=== PATIENT | female | born 1985 | race Hispanic/Latino ===

== ENCOUNTER 2019-10-04 12:18 | Emergency (ER) | payer OTHER, SELFPAY ==
[2019-10-04 12:46] VITALS: BP 145/80; PULSE 112; RESP 16; TEMP 36.6; O2SAT 99
--- NOTE | 2019-10-04 12:52 | ED.GENADULT ---
HPI - General Adult General Chief complaint: Ear Stated complaint: Stuffy Nose Time Seen by Provider: 10/04/19 12:52 Source: patient Mode of arrival: ambulatory Limitations: no limitations History of Present Illness HPI narrative: 34-year-old female patient presents to the [facility] with complaints of right ear pain that has been ongoing for the past 2 weeks but is gotten increasingly worse the last couple of days with mild dizziness. Patient states she is currently 14 weeks . Patient denies any fevers, body aches or chills. Patient states she has had a little bit of a stuffy nose that she has been using a [employer] pot for. Patient denies any sore throat, coughing, chest pain or shortness of breath. Related Data Home Medications Medication Instructions Recorded Confirmed PNV,calcium 66-xamc-bhylq acid 1 tablet PO DAILY 10/04/19 10/04/19 [ Vitamin Plus Low Iron] loratadine [Claritin] 10 mg PO DAILY 10/04/19 10/04/19 nifedipine 30 mg PO DAILY 10/04/19 10/04/19 Allergies Allergy/AdvReac Type Severity Reaction Status Date / Time No Known Allergies Allergy Verified 10/04/19 13:00 Review of Systems Review of Systems: Narrative: CONSTITUTIONAL: Denies fever, chills, or sweats. EYES: Denies visual changes, redness, or discharge. ENT: Denies rhinorrhea, congestion, sore throat, positive right otalgia. CARDIOVASCULAR: Denies chest pain, palpitations, or edema. RESPIRATORY: Denies cough or dyspnea. GASTROINTESTINAL: Denies abdominal pain, nausea, vomiting, or diarrhea. GENITOURINARY: Denies dysuria or hematuria. SKIN: Denies rash or itching. MUSCULOSKELETAL: Denies back pain, joint pain, or myalgia. NEUROLOGIC: Denies headache, numbness, or weakness. PSYCHIATRIC: Denies anxiety or depression. [facility] Family History Family History Other Diabetes mellitus Hypertension Social History Social History Smoking status: Current every day smoker Alcohol intake: current Comments At the time of my signature I agree with nursing past medical history, surgical, social, and family history. There is no relevant family history pertinent to the presenting complaint. Exam Narrative: Exam Narrative: GENERAL: Well-appearing, well-nourished, and in no acute distress. HEAD: Normocephalic, atraumatic. EYES: PERRLA and EOMI. ENT: Nares clear, no rhinorrhea or epistaxis. Mucous membranes moist. The right eardrum does have some erythema as well as some pus noted behind the TM. Nothing noted to the canal. Posterior pharynx with no erythema, tonsil management, exudates or lesions present. NECK: Supple. No lymphadenopathy CHEST: Clear to auscultation. No respiratory distress. HEART: Regular rate and rhythm. No murmur heard. Normal peripheral pulses. ABDOMEN: Soft, nontender, nondistended, normal active bowel sounds. EXTREMITIES: Normal range of motion. No edema. SKIN: Warm, dry, no rash. NEURO: No focal deficits. Alert and oriented x3. Course Vital Signs Vital signs: Vital Signs Temperature 36.6 C 10/04/19 12:46 Pulse Rate 112 H 10/04/19 12:46 Respiratory Rate 16 10/04/19 12:46 Blood Pressure 145/80 H 10/04/19 12:46 Pulse Oximetry 99 10/04/19 12:46 Temperature 36.6 C 10/04/19 12:46 Pulse Rate 112 H 10/04/19 12:46 Respiratory Rate 16 10/04/19 12:46 Blood Pressure 145/80 H 10/04/19 12:46 Pulse Oximetry 99 10/04/19 12:46 Vital signs reviewed. The patient has been informed that they may have pre-hypertension or Hypertension based on a BP reading in the department. I recommend that the patient call the primary care provider listed on their discharge instructions or a physician of their choice this week to arrange follow up for further evaluation of possible pre-hypertension or Hypertension Medical Decision Making Differential Diagnosis Differential Diagnosis: Differential
== END 2019-10-04 13:05 | disposition home or self-care (01) ==
PROVIDERS: Emergency Provider Nurse Practitioner Family; PCP Registered Nurse
DX: H66.91 Otitis media, unspecified, right ear (principal); F17.200 Nicotine dependence, unspecified, uncomplicated
CPT/HCPCS: 99213; G0463

== ENCOUNTER 2019-12-30 12:23 | Emergency (ER) | payer OTHER, SELFPAY ==
[2019-12-30 12:33] VITALS: BP 120/63; PULSE 118; RESP 18; TEMP 36.8; O2SAT 98
[2019-12-30 12:35] VITALS: BP 120/63; PULSE 118; RESP 18; TEMP 36.8; O2SAT 98
--- NOTE | 2019-12-30 12:44 | ED.DIZZY ---
HPI - Dizziness General Chief Complaint: Dizziness Stated Complaint: dizziness History of Present Illness HPI Narrative: THIS A 34 YEAR OLD FEMALE THAT COMES IN COMPLAINING OF DIZZINESS THAT HAS BEEN GOING ON FOR 2 WEEKS OFF AND ON. PATIENT STATES SHE BELIEVES IT VERTIGO BECAUSE SHE HAS HAD IT BEFORE PATIENT IS 26 WEEKS . PATIENT DENIES CALLING HER [employer] BUT STATES SHE GET EAR INFECTIONS OFTEN AND SHE HAS JUST STARTED TAKING ZYRTEC. PATIENT STATES SHE WAS TAKING CLARITIN AND IT WAS NOT WORKING. PATIENT STATES HER RIGHT EAR IS CAUSING SOME ISSUES AND SHE FEEL LIKE SHE HAS TO LEAN THAT WAY BECAUSE HER EAR FEELS FULL. Related Data Home Medications Medication Instructions Recorded Confirmed PNV,calcium 28-tato-rukkj acid 1 tablet PO DAILY 10/04/19 10/04/19 [ Vitamin Plus Low Iron] loratadine [Claritin] 10 mg PO DAILY 10/04/19 10/04/19 nifedipine 30 mg PO DAILY 10/04/19 10/04/19 aspirin 12/30/19 chlorthalidone 12/30/19 citalopram mg 12/30/19 Allergies Allergy/AdvReac Type Severity Reaction Status Date / Time No Known Allergies Allergy Verified 10/04/19 13:00 Review of Systems Review of Systems: Narrative: CONSTITUTIONAL: Denies fever, chills, or sweats. EYES: Denies visual changes, redness, or discharge. ENT: Denies rhinorrhea, congestion, REPORTS sore throat, or otalgia. CARDIOVASCULAR:Denies chest pain, palpitations, or edema. RESPIRATORY: Denies cough or dyspnea. GASTROINTESTINAL: Denies abdominal pain, nausea, vomiting, or diarrhea. GENITOURINARY: Denies dysuria or hematuria. SKIN:[Denies rash or itching. MUSCULOSKELETAL:Denies back pain, joint pain, or myalgia. NEUROLOGIC: Denies headache, numbness, or weakness. PSYCHIATRIC:Denies anxiety or depression [facility] Family History Family History Other Diabetes mellitus Hypertension Social History Social History Smoking status: Current every day smoker Alcohol intake: current Comments At time as signature, I have reviewed and agree with nursing past medical, social, surgical and family history. Please see nursing chart for further information. There is no relevant family history pertinent to the presenting complaint. Exam Narrative: Exam Narrative: GENERAL:Well-appearing, well-nourished, and in no acute distress. HEAD:Normocephalic, atraumatic. EYES: PERRLA and EOMI. ENT: Nares clear, no rhinorrhea or epistaxis. Mucous membranes moist. RIGHT EAR TM BULGING WITH CLOUDY FLUID NOTED, . Postnasal drainage noted right erythema throat mild enlarged tonsils NECK: Supple. CHEST: Clear to auscultation. No respiratory distress. HEART: Regular rate and rhythm. No murmur heard. Normal peripheral pulses. ABDOMEN: Soft, nontender, nondistended, normal active bowel sounds. EXTREMITIES: Normal range of motion. No edema. SKIN: Warm, dry, no rash. NEURO: No focal deficits. Alert and oriented x3. Course Vital Signs Vital signs: Vital Signs Temperature 98.2 F 12/30/19 12:33 Pulse Rate 118 H 12/30/19 12:33 Respiratory Rate 18 12/30/19 12:33 Blood Pressure 120/63 12/30/19 12:33 Pulse Oximetry 98 12/30/19 12:33 Temperature 98.2 F 12/30/19 12:35 Pulse Rate 118 H 12/30/19 12:35 Respiratory Rate 18 12/30/19 12:35 Blood Pressure 120/63 12/30/19 12:35 Pulse Oximetry 98 12/30/19 12:35 MDM - Dizziness MDM Narrative Medical decision making narrative: cALL PLACED TO DR. VASQUEZ OFFICE PATIENT [employer] SHE IS 26 WEEKS MESSAGE LEFT FOR THEM TO CALL HER BACK DUE TO I WAS UNABLE TO GET A HOLD OF A LIVE PERSON/ Discharge Plan Discharge Clinical Impression: Dizziness Allergic rhinitis Qualifiers: Allergic rhinitis trigger: unspecified Allergic rhinitis seasonality: unspecified Qualified Code(s): J30.9 - Allergic rhinitis, unspecified Patient Disposition: Home, Self-Care Condition: Stable
== END 2019-12-30 13:02 | disposition home or self-care (01) ==
PROVIDERS: Emergency Provider Nurse Practitioner Family; PCP Registered Nurse
DX: O99.891 Other specified diseases and conditions complicating pregnancy (principal); R42 Dizziness and giddiness; O99.512 Diseases of the respiratory system complicating pregnancy, second trimester; J30.9 Allergic rhinitis, unspecified; O99.332 Smoking (tobacco) complicating pregnancy, second trimester; Z3A.26 26 weeks gestation of pregnancy
CPT/HCPCS: 99213; G0463

== ENCOUNTER 2020-02-16 09:03 | Outpatient (CLI) | payer OTHER, SELFPAY | END 2020-02-16 09:04 | disposition home or self-care (01) | LOC: ANHAUDIO 09:04 | PROVIDERS: PCP Registered Nurse | DX: H65.23 Chronic serous otitis media, bilateral (principal) | CPT/HCPCS: 92557; 92567 ==

== ENCOUNTER 2020-07-03 16:57 | Emergency (ER) | payer OTHER, SELFPAY ==
--- NOTE | ~2020-07-03 | XR_ITS ---
EXAMINATION: XR abdomen obstructive series DATE: 07/03/2020 17:43 INDICATION: Abdominal pain and diarrhea TECHNIQUE: Upright and supine views of the abdomen were obtained. COMPARISON: None. FINDINGS: There is no free intraperitoneal gas or evidence of bowel obstruction. Cholecystectomy clip s are noted. The lung bases are clear. IMPRESSION: 1. Nonobstructive bowel gas pattern. Reviewed, dictated and finalized at location A.
[2020-07-03 17:00] VITALS: BP 149/90; PULSE 76; RESP 16; TEMP 36.2; O2SAT 100
--- NOTE | 2020-07-03 17:16 | ED.GENADULT ---
HPI - General Adult General Chief complaint: Abdominal Pain Stated complaint: abd pain Source: patient Mode of arrival: ambulatory Limitations: no limitations History of Present Illness HPI narrative: Patient presents for evaluation of abdominal pain. Symptom onset approximately 2100 last night. States the pain occurred few hours after eating a salad. Pain was initially in LUQ, then to RUQ. Pain lasted until approximately 0300 this morning. She was unable to fall asleep. She describes the pain as cramping , rated 7 out of 10 in severity. She states she had some beef and vegetables soup today around 1400. Approximately an hour and a half ago she developed epigastric pain, similar in quality and severity to that experienced last evening. No fever, chills, vomiting. She experienced some mild nausea en route here today. She denies any urinary symptoms, vaginal bleeding/discharge. She underwent delivery 3 months ago. No postoperative complications. . She has not had a period since her recent delivery. Her last bowel movement was this morning, which she states was diarrhea, without the presence of blood or mucus in the stool. Surgical history also positive for cholecystectomy. She had similar symptoms to those she is experienced during last night and Related Data Home Medications Medication Instructions Recorded Confirmed PNV,calcium 93-lwcw-iogcl acid 1 tablet PO DAILY 10/04/19 07/03/20 [ Vitamin Plus Low Iron] loratadine [Claritin] 10 mg PO DAILY 10/04/19 07/03/20 Allergies Allergy/AdvReac Type Severity Reaction Status Date / Time No Known Allergies Allergy Verified 07/03/20 17:18 Review of Systems Review of Systems: Narrative: CONSTITUTIONAL: Denies fever, chills, or sweats. EYES: Denies visual changes, redness, or discharge. ENT: Denies rhinorrhea, congestion, sore throat, or otalgia. CARDIOVASCULAR: Denies chest pain, palpitations, or edema. RESPIRATORY: Denies cough or dyspnea. GASTROINTESTINAL: Reports abdominal pain and nausea without vomiting GENITOURINARY: Denies dysuria or hematuria. SKIN: Denies rash or itching. MUSCULOSKELETAL: Denies back pain, joint pain, or myalgia. NEUROLOGIC: Denies headache, numbness, dizziness, or weakness. PSYCHIATRIC: Denies anxiety or depression. [facility] Past Medical History Medical History (Updated 07/03/20 @ 18:43 by Bairon Hart, NET FINISHER, ) Hypertension Surgical History Surgical History History of section Family History Family History Other Diabetes mellitus Hypertension Social History Social History Smoking status: Current every day smoker Alcohol intake: current Substance use: never Living arrangements: with family Gender identity (if verbalized by the patient): Female Sexual Orientation (if Verbalized by the Patient): Straight or Heterosexual Spiritual care concerns: No Exam Narrative: Exam Narrative: GENERAL: Well-appearing, well-nourished, and in no acute distress. HEAD: Normocephalic, atraumatic. EYES: PERRLA and EOMI. ENT: Nares clear, no rhinorrhea or epistaxis. Mucous membranes moist. Oropharynx without tonsillar hypertrophy exudate or other lesions. Bilateral TMs pearly singleton nonbulging NECK: Supple. No adenopathy or masses. No carotid bruits or JVD CHEST: Clear to auscultation. No respiratory distress. No wheezes rales or rhonchi HEART: Regular rate and rhythm. No murmur heard. Normal peripheral pulses. ABDOMEN: Soft, mild epigastric tenderness without rebound or guarding. No other abdominal tenderness. Nondistended, normal active bowel sounds. EXTREMITIES: Normal range of motion. No edema. SKIN: Warm, dry, no rash. NEURO: No focal deficits. Alert and oriented x3. PSYCH: Normal mood and affect. Cour
== END 2020-07-03 18:55 | disposition home or self-care (01) ==
PROVIDERS: Emergency Provider Nurse Practitioner; PCP Registered Nurse
DX: R10.13 Epigastric pain (principal); I10 Essential (primary) hypertension; F17.200 Nicotine dependence, unspecified, uncomplicated
CPT/HCPCS: 74019; 81003; 81025; 99213; G0463

== ENCOUNTER 2022-06-12 11:38 | Emergency (ER) | payer OTHER, SELFPAY ==
[2022-06-12 11:45] VITALS: BP 145/85; PULSE 90; RESP 12; TEMP 36.8; O2SAT 100
--- NOTE | 2022-06-12 12:24 | ED.URI ---
HPI - URI/Sore Throat General Chief Complaint: Upper Respiratory Infection Stated Complaint: uri Time Seen by Provider: 06/12/22 12:24 Source: patient and RN notes reviewed Mode of arrival: ambulatory Limitations: no limitations History of Present Illness HPI Narrative: 36-year-old female presents with concern for chronic allergy problems and sinusitis. Reports symptoms worsen over the last 5 days, pain was worse yesterday. She reports she has been using antihistamine and Flonase without relief. She is . She denies fever, aches, chills, sweats, cough, shortness of breath. Denies known sick contacts MD elicited complaint: nasal congestion and sinus pain Related Data Home Medications Medication Instructions Recorded Confirmed loratadine 10 mg tablet (Claritin) 10 mg PO DAILY 10/04/19 06/12/22 vitamin with calcium 1 tablet PO DAILY 10/04/19 06/12/22 no.72-iron 27 mg-folic acid 1 mg tablet ( Vitamins Plus Low Iron) famotidine 40 mg tablet 40 mg PO DAILY 06/12/22 06/12/22 Allergies Allergy/AdvReac Type Severity Reaction Status Date / Time No Known Allergies Allergy Verified 06/12/22 11:41 Review of Systems Review of Systems: CONSTITUTIONAL: Denies malaise, chills, sweats, or fever. EYES: Denies visual changes, redness, or discharge. ENT: Reports rhinorrhea, congestion, sinus pain. Denies otalgia and sore throat. CARDIOVASCULAR: Denies chest pain, palpitations, or edema. RESPIRATORY: Denies cough. Denies dyspnea. GASTROINTESTINAL: Denies abdominal pain, nausea, vomiting, diarrhea SKIN: Denies rash or itching. MUSCULOSKELETAL: Denies myalgia. NEUROLOGIC: Denies headache. All systems reviewed & are unremarkable except as noted in HPI and below PMFSH Past Medical History Medical History (Updated 06/12/22 @ 12:33 by Nayla Norris NP) Hypertension Surgical History Surgical History History of section Family History Family History Other Diabetes mellitus Hypertension Social History Social History Smoking status: Current every day smoker Alcohol intake: current Substance use: never Living arrangements: with family Gender identity (if verbalized by the patient): Female Sexual Orientation (if Verbalized by the Patient): Straight or Heterosexual Spiritual care concerns: No Comments At time of signature, agree with nursing past medical, surgical, social and family history. There is no relevant family history pertinent to the presenting complaint Exam Narrative: GENERAL: Well-appearing, well-nourished, and in no acute distress. HEAD: Normocephalic EYES: PERRLA, conjunctivae clear ENT: Nares clear, turbinates edematous and erythematous, sinus tenderness. Mucous membranes moist. TM pearly singleton with dull light reflex bilaterally; no tragal tenderness. Oropharynx not erythematous without lesions. Tonsils not enlarged and without exudate, no drooling, no hoarseness, no trismus, uvula midline. NECK: Supple. No lymphadenopathy CHEST: Clear to auscultation, breath sounds equal. No wheezing, rhonchi, rales, or stridor. No respiratory distress, speaks in full sentences. HEART: Regular rate and rhythm. No murmur heard. SKIN: Warm, dry, no rash. NEURO: Alert and oriented x3. PSYCH: Normal mood and affect Course Course Emergency Course: Patient is aware of diagnosis, understands and agrees to treatment plan. Anticipatory guidance given. Patient agrees to follow-up as directed and is aware of reasons to seek care at the emergency department. Portions of this record may have been created with voice recognition software Level of Care: Express Care Visit Vital Signs Vital signs: Reviewed. MDM - URI/Sore Throat MDM Narrative Medical decision making narrative:
== END 2022-06-12 12:36 | disposition home or self-care (01) ==
PROVIDERS: Emergency Provider Nurse Practitioner; PCP Registered Nurse
DX: J01.90 Acute sinusitis, unspecified (principal); I10 Essential (primary) hypertension; F17.200 Nicotine dependence, unspecified, uncomplicated
CPT/HCPCS: 99213; G0463

== ENCOUNTER 2023-03-24 10:38 | Emergency (ER) | payer OTHER, SELFPAY ==
[2023-03-24 11:44] VITALS: BP 150/81; PULSE 114; RESP 16; TEMP 37.1; O2SAT 99
--- NOTE | 2023-03-24 12:06 | ED.URI ---
HPI - URI/Sore Throat General Chief Complaint: Upper Respiratory Infection Stated Complaint: throat itchy,right ear pain,congested Time Seen by Provider: 03/24/23 12:06 Source: patient, RN notes reviewed and old records reviewed Mode of arrival: ambulatory Limitations: no limitations History of Present Illness HPI Narrative: 37-year-old female presents to the [facility] with complaints of right ear pain, congestion and sore throat. Patient reports she is 6 months States that she has been taking Tylenol Sinus Patient has a history in previous pregnancies with hypertensive issues but currently not being treated Treatments prior to arrival: cold medicine Related Data Home Medications Medication Instructions Recorded Confirmed aspirin 81 mg chewable tablet 81 mg PO DAILY 03/24/23 03/24/23 cholecalciferol (vitamin D3) 125 125 mcg PO DAILY 03/24/23 03/24/23 mcg (5,000 unit) capsule (Dialyvite Vitamin D) vitamin with calcium 1 tablet PO DAILY 03/24/23 03/24/23 no.72-iron 27 mg-folic acid 1 mg tablet (WesTab Plus) Allergies Allergy/AdvReac Type Severity Reaction Status Date / Time No Known Allergies Allergy Verified 03/24/23 11:26 Review of Systems Review of Systems: All systems reviewed & are unremarkable except as noted in HPI and below Constitutional: Constitutional: Reports no additional constitutional complaints Eyes: Eyes: Reports no additional eye complaints ENT: Reports as per HPI, Reports nasal congestion and Reports sore throat Cardiovascular: Cardiovascular: Reports no additional cardiovascular complaints, Denies chest pain and Denies dyspnea Respiratory: Respiratory: Reports no additional respiratory complaints, Denies chest congestion, Denies cough and Denies dyspnea Gastrointestinal: Gastrointestinal: Reports no additional gastrointestinal complaints, Denies abdominal pain, Denies nausea and Denies vomiting Musculoskeletal: Musculoskeletal: Reports no additional musculoskeletal complaints Integumentary/Breasts: Skin/Breast: Reports system reviewed and no additional complaints, except as docu Neurologic: Reports system reviewed and no additional complaints, except as documented Psychiatric: Psychiatric: Reports no additional psychiatric complaints Allergic/Immunologic: Allergic/Immunologic: Reports no additional allergic/immunologic complaints [facility] Past Medical History Medical History Hypertension Surgical History Surgical History History of section Family History Family History Other Diabetes mellitus Hypertension Social History Social History Smoking status: Current every day smoker Alcohol intake: current Substance use: never Living arrangements: with family Gender identity (if verbalized by the patient): Female Sexual Orientation (if Verbalized by the Patient): Straight or Heterosexual Spiritual care concerns: No Comments At the time of my signature, I reviewed and agree with the nursing past medical, surgical, social, and family history. There is no relevant family history pertinent to the patient complaint. Exam Const: General: cooperative, healthy appearing, comfortable, no acute distress, well developed, alert and well nourished Nutritional Appearance: well nourished Orientation/consciousness: patient oriented x3 Limitations: no limitations HENMT: Head: normal to inspection Ears: hearing grossly normal bilaterally, external ears normal, TM's normal bilaterally, EAC's normal, mastoids normal and no periauricular adenopathy Face/Nose/Sinus: Normal external nose present, Normal nares present, Normal nasal mucous membranes and turbinates present, normal facial exam and face symmetric Face and sinus: normal
[2023-03-24 12:35] VITALS: BP 130/96
== END 2023-03-24 12:35 | disposition short-term general hospital (02) ==
PROVIDERS: Emergency Provider Nurse Practitioner; PCP Registered Nurse
DX: O26.892 Other specified pregnancy related conditions, second trimester (principal); J06.9 Acute upper respiratory infection, unspecified; R03.0 Elevated blood-pressure reading, without diagnosis of hypertension; O99.332 Smoking (tobacco) complicating pregnancy, second trimester; F17.200 Nicotine dependence, unspecified, uncomplicated; Z79.82 Long term (current) use of aspirin; Z3A.00 Weeks of gestation of pregnancy not specified
CPT/HCPCS: 87081; 87880; 99213; G0463

== ENCOUNTER 2023-10-12 | Emergency (ER) | payer OTHER, SELFPAY ==
[2023-10-12 00:20] VITALS: BP 136/84; PULSE 121; RESP 15; TEMP 36.2; O2SAT 100
[2023-10-12 01:23] LABS: Add Urine Microscopic? YES; Appearance Urine Clear (Clear); Bacteria Urine None Seen /hpf; Bilirubin Urine Negative (Negative); Blood Urine Negative (Negative); Color Urine Yellow (Yellow); Glucose Urine UA Negative (Negative); Ketones Urine Negative (Negative); Leukocyte Esterase Ur Trace LEU/UL (Negative); Nitrate Urine Negative (Negative); Non Pathogenic Casts 0-2; Protein Urine Negative (Negative); RBC Urine 0-2 /hpf (0-2); Specific Grav Ur 1.004 (1.001-1.035); Squamous Epithelial Cell Urine None Seen /hpf (Few); Urobilinogen Urine 0.2 mg/dL (<2.0); WBC Urine 0-5 /hpf (0-3); pH Urine 7.5 (5.0-9.0)
[2023-10-12 05:52] VITALS: BP 148/61; PULSE 99; RESP 16; O2SAT 97
[2023-10-12 05:56] LABS: Basophils Percent Auto 0.5 % (0.2-1.2); Eosinophils Absolute Auto 0.1 K/mm3 (0-0.3); Eosinophils Percent Auto 1.4 % (0-4.4); Hemoglobin 14.2 g/dL (12.0-15.0); Immature Granulocyte Absolute 0.01 K/mm3 (0.00-0.031); Immature Granulocyte Percent A 0.1 % (0-0.5); Lymphocytes Absolute Auto 3.39 K/mm3 (0.9-3.2); Lymphocytes Percent Auto 43.4 % (18.3-44.2); Mean Corpuscular HGB Conc 33.8 g/dl (32-36); Mean Corpuscular Volume 88.6 fl (80-100); Mean Platelet Volume 10.3 fl (7.4-10.4); Monocytes Absolute Auto 0.5 K/mm3 (0.1-0.6); Monocytes Percent Auto 6.1 % (2.6-8.5); Neutrophils Absolute Auto 3.8 K/mm3 (1.3-6.7); Neutrophils Percent Auto 48.5 % (45.5-73.1); Platelet Count Result 261 k/mm3 (150-375); Red Blood Count 4.74 M/mm3 (4.2-5.4); Red Cell Distribution Width 13.1 % (11.5-14.5); White Blood Count 7.8 K/mm3 (4.5-10.0)
[2023-10-12 06:06] LABS: Alanine Aminotransferase 24 U/L (6-35); Albumin Level 4.7 g/dL (3.5-5.1); Alkaline Phosphatase 117 U/L (38-126); Anion Gap 9 mmol/L (4-12); Aspartate Amino Transferase 18 U/L (14-36); Bilirubin,Total 0.2 mg/dL (0.2-1.3); Blood Urea Nitrogen 15 mg/dL (7-17); Calcium 9.5 mg/dL (8.4-10.2); Carbon Dioxide 31 mmol/L (22-30); Chloride 99 mmol/L (98-107); Estimated CRCL calculation 140 ml/min; Estimated Glomerular Filt Rate > 60; Glucose 101 mg/dL (65-110); Potassium 4.1 mmol/L (3.4-5.0); Sodium 139 mmol/L (137-145)
[2023-10-12 06:20] LABS: SPREG INTERNAL CONTROL Positive; Serum Qual hCG Negative
--- NOTE | 2023-10-12 06:24 | ED.FEMALEGU ---
HPI - Female Genitourinary General Chief complaint: Urogenital-Female Stated complaint: lower abd pain Time Seen by Provider: 10/12/23 05:44 History of Present Illness HPI Narrative: Patient is a 38-year-old male who presents to the emergency department this evening complaining of lower abdominal pain. Patient states that she feels as though her her scar is and wanted to be looked at and evaluated. Patient states that she has been going to the bathroom more frequently and would like to be checked for urinary tract infection. Denies any fevers or chills at home, any nausea or vomiting. States the the abdominal pain is a very mild ache. No additional symptoms or concerns at this time. Related Data Home Medications Medication Instructions Recorded Confirmed aspirin 81 mg chewable tablet 81 mg PO DAILY 03/24/23 03/24/23 cholecalciferol (vitamin D3) 125 125 mcg PO DAILY 03/24/23 03/24/23 mcg (5,000 unit) capsule (Dialyvite Vitamin D) vitamin with calcium 1 tablet PO DAILY 03/24/23 03/24/23 no.72-iron 27 mg-folic acid 1 mg tablet (WesTab Plus) Allergies Allergy/AdvReac Type Severity Reaction Status Date / Time No Known Allergies Allergy Verified 10/12/23 00:01 Review of Systems Review of Systems: All systems are reviewed and are negative unless stated otherwise in the HPI. [facility] Past Medical History Medical History Hypertension Surgical History Surgical History History of section Family History Family History Other Diabetes mellitus Hypertension Social History Social History Smoking status: Current every day smoker Alcohol intake: current Substance use: never Living arrangements: with family Gender identity (if verbalized by the patient): Female Sexual Orientation (if Verbalized by the Patient): Straight or Heterosexual Spiritual care concerns: No Exam Narrative: General: Alert, awake, afebrile, in no acute distress. HEENT: PERRL, no rhinorrhea, no post nasal drip, oropharynx clear. Cardiovascular: Regular rate and rhythm, no murmurs, rubs or gallops, no peripheral edema. Respiratory: Clear to auscultation bilaterally, no tachypnea, no wheezing, no rhonchi, no rubs, no respiratory distress. Abdomen: Soft, nontender, nondistended, no rebound, no guarding, no peritoneal signs. Musculoskeletal: No joint swelling or deformity, normal muscle tone. Skin: Lower horizontal abdominal scar pulse be well healed, no evidence of erythema or cellulitis. Neurological: Alert and oriented to person, place, and time. Follows all commands. No focal deficits, speech is clear and fluent. Course Vital Signs Vital signs: Vital Signs Temperature 97.2 F L 10/12/23 00:20 Pulse Rate 121 H 10/12/23 00:20 Respiratory Rate 15 10/12/23 00:20 Blood Pressure 136/84 10/12/23 00:20 Pulse Oximetry 100 10/12/23 00:20 Temperature 97.2 F L 10/12/23 00:20 Pulse Rate 99 10/12/23 05:52 Respiratory Rate 16 10/12/23 05:52 Blood Pressure 148/61 H 10/12/23 05:52 Pulse Oximetry 97 10/12/23 05:52 MDM - Female Genitourinary MDM Narrative Medical decision making narrative: The patient was evaluated by myself in the emergency department. History is obtained from patient who is an independent historian and physical exam was performed. External medical records were reviewed at this time. IV was established and pertinent tests were ordered. Laboratory results obtained revealing No acute process. Urinalysis unremarkable. This time patient was informed of her blood work results at bedside. Shared medical decision-making regarding obtaining a CT scan was discussed at this time and given patient and normal blo
== END 2023-10-12 06:49 | disposition home or self-care (01) ==
PROVIDERS: Emergency Provider Emergency Medicine; PCP Registered Nurse
DX: R10.30 Lower abdominal pain, unspecified (principal); F17.210 Nicotine dependence, cigarettes, uncomplicated; I10 Essential (primary) hypertension
CPT/HCPCS: 36415; 80053; 81001; 84703; 85025; 99283

== ENCOUNTER 2024-11-28 10:03 | Outpatient (CLI) | payer OTHER, SELFPAY ==
--- NOTE | 2024-11-28 09:30 | ECG_ITS ---
Test Date: 2024-11-28 10:17:20 Measurements Intervals [place] Rate: 67 P: 44 TX: 184 QRS: 55 QRSD: 95 T: 31 QT: 415 QTc: 438 Interpretive Statements SINUS RHYTHM MINIMAL Q WAVES- INFERIOR LEADS BASELINE ARTIFACT- I, II, III, AVR, AVL, AVF BORDERLINE ECG No previous ECG available for comparison Electronically Signed On 11-28-2024 11:36:17 CDT by Edinson Yoder D.O.
[2024-11-28 10:58] LABS: Anion Gap 6 mmol/L (4-12); Blood Urea Nitrogen 14 mg/dL (7-17); Calcium 9.1 mg/dL (8.4-10.2); Carbon Dioxide 31 mmol/L (22-30); Chloride 101 mmol/L (98-107); Estimated Glomerular Filt Rate > 60; Glucose 97 mg/dL (65-110); Potassium 4.0 mmol/L (3.4-5.0); Sodium 138 mmol/L (137-145)
--- OUTSIDE RECORDS SUMMARY | 2024-11-28 11:01 | XMS_ITS | Clinical Summary ---
Author Organization [facility] Care Team Providers Care Tar Man Name Role Phone Unavailable Primary Care Provider Unavailabl e Social History Tobacco Use Types Packs/Day Years Used Date Smoking Tobacco: Never Assessed Comments Unknown Sex and Gender Information Value Date Recorded Sex Assigned at Not on file Legal Sex Female 1:02 PM PHYSICAL THERAPY AIDE Gender Identity Not on file Sexual Orientation Not on file Plan of Treatment Health Maintenance Due Date Last Done Comments Hepatitis C Virus (HCV) Screening 1985 Hepatitis B Immunization (1 of 3 - 19+ 3-dose series) 2004 Pap Smear 2006 Human Papillomavirus (HPV) Immunization (1 - 3-dose SCDM series) 2012 Cervical Cancer Screening (CCS) 09/03/2015 HPV/Cotest 09/03/2015 Influenza Immunization (#1) 2024 09/2 , 11/14/2019, 03/24/2018 SARS-COV-2 Immunization ( season) 2024 06/14/2020, 05/14/2020 Respiratory Syncytial Virus (RSV) Immunization (Adult) (1 - 1-dose 75+ series) 2060 DTaP/Tdap/Td Immunization Discontinued 2019, 04/22/2017, 11/12/2015 TdaP Immunization Completed 01/11/2020, 04/22/2017, 11/12/2015 Meningococcal Immunization (ACWY) Aged Out No longer eligible based on patient's age to complete this topic Pneumococcal Immunization Combined Aged Out No longer eligible based on patient's age to complete this topic Rotavirus Immunization Aged Out No lo nger eligible based on patient's age to complete this topic
--- OUTSIDE RECORDS SUMMARY | 2024-11-28 11:01 | XMS_ITS | Clinical Summary ---
Author Organization [place] [id number] [facility] Address [address] [place] [address] Care Team Providers Care Sap Project Manager Name Role Phone BeckaAriel cameronkelvinhanna MOISES Primary Care Provider [phone] Allergies No known active allergies Medications PNV with [id number] ( Vitamin Plus Low Iron) 27 mg iron- 1 mg tablet Take 1 tablet by mouth daily 30 tablet 11 3 Active cholecalciferol (VITAMIN D-3) 5,000 unit tablet Take 1 tablet (5,000 Units total) by mouth daily 30 tablet 5 4 Active ibuprofen (ADVIL,MOTRIN) 800 mg tabletIndication s:Cramps Take 1 tablet (800 mg total) by mouth every 8 (eight) hours 60 tablet 4 Active NIFEdipine (NIFEdipine CC) 60 mg 24 hr tablet Take 1 tablet (60 mg total) by mouth daily 30 tablet 4 Active clotrimazole 1 % creamIndications :Cutaneous candidiasis Apply topically 2 (two) times a day To the affected area 30 g 1 4 Active Active Problems Problem Noted Date Diagnosed Date HSV infection 12/30/2022 History of chronic hypertension 09/22/2019 Resolved Problems Problem Noted Date Diagnosed Date Resolved Date care following delivery 06/30/2023 08/11/2023 Overview (07/01/2023): 06/30/23, POD#1 (JF) S/p uncomplicated rLTCS 350 EBL 350 cc, Hgb 11.8 > 11.6 O+, Rubella immune Vital signs reviewed and normal - cHTN no medication, normal labs Ambulating, tolerating PO, voiding spontaneously, lochia moderate, pain controlled MOF: MOC: declines - reviewed spacing after c/section VTE ppx: The patient has the following MAJOR risk factors BMI >/= 40 and the following MINOR risk factors delivery. enoxaparin 40 mg daily ordered for VTE prophylaxis. Mood: stable Dispo: Continue routine care. 07/01/2023 POD #2 (CZ) EBL 350 cc, Hgb 11.8 > 11.6 O+, Rubella immune Vital signs reviewed and normal - cHTN no medication, normal labs BP check scheduled for Thursday Ambulating, tolerating PO, voiding spontaneously, lochia moderate, pain controlled MOF: MOC: declines - reviewed spacing after c/section - partner vasectomy VTE ppx: The patient has the following MAJOR risk factors BMI >/= 40 and the following MINOR risk factors delivery. enoxaparin 40 mg daily ordered for VTE prophylaxis. Mood: stable EPDS 2 Dispo: discharge home in stable condition Discharge teaching provided including PPD/PPA, pre-e and bleeding/clotting precautions Follow-UP: Thursday for BP check 1 week for incision check 6 weeks visit Gestational hypertension, third trimester 04/16/2023 06/16/2023 Antepartum multigravida of a dvanced maternal age 1112/30/2022 08/11/2023 Overview (06/29/2023): Surveillance of : [facility] transfer EDC by LMP = 12 week US ([facility]) O+/I/-/-, HIV and RPR NR Genetics: AMA low risk Anatomy:[facility] MFM - complete, normal, AGA Anterior placenta GCT: normal 3 hr GTT 3T labs: Hgb 11.8, Plt 233 Tdap: 04/28 GBS: negative COVID Vaccine: declined Social Barriers: none Mode of feeding: Breast Method of contraception: Partner vasectomy, [place] form (03/27) H/o HSV: will need ppx at 36 weeks or PRN - script sent 05/19; counseled Obesity (BMI 37); LGA: early 3 hr normal. AMA (37): dASA, LR NIPT H/o CS x 3 - needs repeat, counsled on risks of 4th C/S - *Operative note under media tab (03/21/2020), no documentation of thick adhesive disease, was able to exteriorize the uterus* repeat with Dr Winter on 06/28 AT 7:30AM Chronic HTN and H/o GHTN: baseline labs normal extensive chart review performed 03/27, had ED visits with elevated systolic and diastolic values outside of and H&P from Dr. Orona reports history of chronic hypertension was on nifedpine in prior pregnancies Serial growth: (03/25) 90%, (04/21) 81%, (05/20) 88%; (06/15) 93%ile testing if starts medication delivery between 38-39 weeks History of gestational hypertension 12/30/2022 08/11/2023 Immunizations Immunization Administration Dates Next Due Tdap 04/29/2023 Surgical History Surgery Date Site/Laterality Comments SECTION x 3 CHOLECYSTECTOMY SALPINGECTOMY Left SECTION, LOW TRANSVERSE 06/29/2023 Repeat c/s Dr Winter Medical History Medical History Date Comments H. pylori infection Abnormal Pap smear of cervix Anxiety Gestational hypertension HSV infection Family History Medical History Relation Name Comments Diabetes Mother Hypertension Mother Breast cancer Neg Hx Colon cancer Neg Hx Ovarian cancer Neg Hx Uterine cancer Neg Hx Relation Name Status Comments Mother Social History Tobacco Use Types Packs/Day Years Used Date Smoking Tobacco: Never Smokeless Tobacco: Never Tobacco Cessation:Counseling Given: Not Answered [place] Depression Scale Answer Date Recorded [place] Depression Scale Total 1 08/11/2023 The thought of harming myself has occurred to me . Never 08/11/2023 Personal Safety Answer Date Recorded Have you ever been in or are you currently in a harmful physical or emotional relationship or is someone making you feel afraid or unsafe? Denies 03/24/2023 Comments No Sex and Gender Information Value Date Recorded Sex Assigned at Not on file Legal Sex Female 7:05 PM CERTIFIED SURGICAL FIRST ASSISTANT Gender Identity Not on file Sexual Orientation Not on file Obstetrics History Para Term AB IAB SAB Ectopic Multiple Livin g Live Births 6 4 4 2 1 1 0 4 4 Date Outcome GA Total Labor Labor/2nd/3rd Weight Sex Type Anes PTL [facility] A1 A5 Name Clin Ectopic 2015 Term 40w 0d 2.92 kg (6 lb 7 oz) M CS-LT ranv Combin ed Spinal /Epidu ral N Livin g Complications: heart ra te non-reassuring affecting management of mother Delivery [facility] 2017 Term 37w 0d 3.175 kg (7 lb) F CS-LT ranv Combin ed Spinal /Epidu ral N Livin g Complications:Gestational hy pertension Delivery Location:[facility] 2018 SAB 2020 Term 39w 0d 3.175 kg (7 lb) F CS-LT ranv Combin ed Spinal /Epidu ral N Livin g Complications:None Delivery Location:[facility] 2023 Term 38w 3d 0h 03m 0h 03m 3.63 kg (8 lb) M C-Sec tion Spinal Livin g 5 6 CRISTO Zimmerman, Keanu Tolentino MD Delivery Location:[facility] ([facility] L AND D PROCEDURE) Last Filed Vital Signs Vital Sign Reading Time Taken Comments Blood Pressure 116/80 08/11/2023 11:48 AM CDT Pulse 72 07/06/2023 5:05 PM CDT Temperature 36.6 C (97.9 F) 07/05/2023 11:04 PM CDT Respiratory Rate 20 07/05/2023 11:04 PM CDT Oxygen Saturation 96% 07/06/2023 1:35 AM CDT Inhaled Oxygen Concentration - - Weight 108.4 kg (239 lb) 08/11/2023 11:48 AM CDT Height 172.7 cm (5' 8) 08/11/2023 11:48 AM CDT Body Mass Index 36.34 08/11/2023 11:48 AM CDT Plan of Treatment Health Maintenance Due Date Last Done Comments Cervical Cancer Screening 1985 Varicella Vaccines (1 of 2 - 13+ 2-dose series) 1998 Hepatitis B Screening 09/03/2003 Regular Well Visit/Exam 18-64 09/03/2003 HPV Vaccines (1 - 3-dose SCDM series) 2012 Depression Screening 08/10/2024 08/11/2023 Influenza Vaccine (#1) 2024 11/14/2019, 2018 DTaP/Tdap/Td Vaccine (5 - Td or Tdap) 04/28/2033 04/29/2023, 01/11/2020, 04/22/2017, Additional history exists Hepatitis C Screening Completed 01/01/2023 Pneumococcal vaccine <65 Aged Out No longer eligible based on patient's age to complete this topic Procedures Procedure Name Priority Date/Time Associated Diagnosis Comments HEPATITIS C ANTIBODY Routine 01/01/2023 9:28 AM CERTIFIED SURGICAL FIRST ASSISTANT Multigravida of advanced maternal age in first trimester from Last 3 Months or Most Recently Relevant to Health Maintenance Results * Hepatitis C antibody Blood (01/01/2023 9:28 AM CERTIFIED SURGICAL FIRST ASSISTANT) Hep C Ab Nonreactive Nonreactive JESSIE IQBAL Comment: Interpretive Data Nonreactive: Antibodies to HCV not detected. Does NOT exclude the possibility of recent exposure to HCV. Equivocal: Equivocal for HCV antibodies. Supplemental molecular testing will be automatically performed to determine infection status in accordance with current CDC screening recommendations. Reactive: Positive for HCV antibodies. This may represent current or past HCV infection. Supplemental molecular testing will be automatically performed to determine current infection status in accordance with current CDC screening recommendations. Interpretive data was last revised on 2019. Blood 01/01/2023 9:28 AM CERTIFIED SURGICAL FIRST ASSISTANT 01/01/2023 12:30 PM CERTIFIED SURGICAL FIRST ASSISTANT Indu Godfrey CNM LAB MICROBIOLOGY - GENERAL ORDERABLES Final Result JESSIE [address] [facility] Department [place] [address] from Last 3 Months or Most Recently Relevant to Health Maintenance Insurance [facility] Advance Directives For more information, please contact: [phone] * Full Code (Latest Code Status on File) Date Activated Date Inactivated Comments 06/29/2023 9:01 AM 07/01/2023 6:04 PM * Full Code Date Activated Date Inactivated Comments 06/29/2023 5:41 AM 06/29/2023 9:01 AM Full CPR in case of cardiopulmonary arrest Care Teams Sap Project Manager Relationship Specialty Start Date End Date Louise Jovel NP PCP - General 06/09/18
--- OUTSIDE RECORDS SUMMARY | 2024-11-28 11:01 | XMS_ITS | Clinical Summary ---
Author Organization [facility] [employer] Address [address] [place] [address] Care Team Providers Care Safe And Vault Service Mechanic Name Role Phone Louise Jovel UNDERCOAT SPRAYER-BOOK PUBLISHER Primary Care Pro vider Source Comments [facility] [employer],non-owned Affiliates and Associated Physician Practices is amultiple site organization consisting of ambulatory clinics and hospital sitesin [place], [place], [place] and [place]. This disclosure is being madepursuant to the Care Everywhere program and may not contain all information available regarding this patient. Last updated 17.[facility] [employer] Allergies No known active allergies Medications * Be aware that medications may not be up to date on this document. Alwaysverify current medications with the patient. Vit-Fe Fumarate-FA ( VITAMIN) 28-0.8 MG tablet Take 1 tablet by mouth once daily Active aspirin EC (ECOTRIN) 81 MG tablet Take 162 mg by mouth once daily Active NIFEdipine CR 24hr (ADALAT CC) 30 MG tablet Take 30 mg by mouth once daily Take on an empty stomach. Active acyclovir (ZOVIRAX) 800 MG tablet Take 800 mg by mouth 2 times daily Updated 02/27/20Pt states she will start it next week. Active cetirizine (ZYRTEC) 10 MG tabletIndicatio ns:Seasonal Allergic Rhinitis Take 10 mg by mouth once daily Reasons: Hayfever Active fluticasone propionate (FLONASE) 50 MCG/ACT nasal sprayIndication s:Nasal Signs and Symptoms [place] 2 sprays into each nostril once daily Reasons: Signs and Symptoms of Nose Diseases Active loratadine (CLARITIN) 10 MG tabletIndicatio ns:Seasonal Allergic Rhinitis Take 10 mg by mouth once daily Reasons: Hayfever Active Active Problems Problem Noted Date Diagnosed Date Obesity affecting , antepartum 10/18/19 20 Fourth 09/23/2019 Encounter for ultrasound 09/23/2019 History of chronic hypertension 09/22/2019 Encounter for supervision of normal , a ntepartum 09/22/2019 History of 06/04/2017 Resolved Problems Problem Noted Date Diagnosed Date Resolved Date Zika virus exposure affecting 03/06/2017 10/18/2019 Oligohydramnios, antepartum 01/28/2016 05/07/2017 Hypertension affecting pregn carlos in second trimester 01/23/2016 09/23/2019 Maternal hypertension in third trimester 01/23/2016 09/23/2019 Obesity during in third trimester 01/23/2016 09/23/2019 Ear pain 03/10/2008 05/07/2017 Overview (03/10/2008): bilateral Rash and other nonspecific skin eruption 03/10/2008 05/07/2017 Headache 03/10/2008 05/07/2017 Overview (12/24/2014): Family History Medical History Relation Name Comments CVA Maternal Grandmother Diabetes Mother Hypercholesterolemia Mother Hypertension Mother Cancer Other pat uncle Cancer Paternal Grandfather CVA Paternal Grandmother Asthma Sister Relation Name Status Comments Maternal Grandmother Mother Other pat uncle Alive Paternal Grandfather Paternal Grandmother Sister Social History Tobacco Use Types Packs/Day Years Used Date Smoking Tobacco: Former Cigarettes Q uit: 02/16/2013 Smokeless Tobacco: Never Tobacco Cessation:Counseling Given: Yes Alcohol Use Standard Drinks/Week Comments No 0 (1 standard drink = 0.6 oz pur e alcohol) Comments No Sex and Gender Information Value Date Recorded Sex Assigned at Not on file Legal Sex Female 5:13 AM WRITING TUTOR Gender Identity Not on file Sexual Orientation Not on file Last Filed Vital Signs Vital Sign Reading Time Taken Comments Blood Pressure 134/73 03/19/2020 9:39 AM WRITING TUTOR Pulse 108 03/19/2020 9:39 AM WRITING TUTOR Temperature 36.7 C (98.1 F) 03/19/2020 9:42 AM WRITING TUTOR Respiratory Rate 18 03/19/2020 9:39 AM WRITING TUTOR Oxygen Saturation 99% 09/04/2019 6:28 AM CDT Inhaled Oxygen Concentration - - Weight 114.8 kg (253 lb) 03/19/2020 9:39 AM WRITING TUTOR Height 172.7 cm (5' 8) 10/20/2019 10:00 AM CDT Body Mass Index 38.47 10/20/2019 10:00 AM CDT Plan of Treatment Health Maintenance Due Date Last Done Comments HIV SCREENING 2000 DTAP/TDAP/TD VACCINES (1 - Tdap) 2004 HEPATITIS B VACCINE (1 of 3 - 19+ 3-dose series) 2004 PAP SMEAR 2006 HPV VACCINE (1 - 3-dose SCDM series) 2012 DEPRESSION SCREENING 02/17/2024 COVID-19 VACCINE (3 - season) 2024 06/14/2020, 05/14/2020 INFLUENZA VACCINE (#1) 2024 2, 11/05/2020, 11/14/2019, Additional history exists ZOSTER VACCINE (1 of 2) 09/03/2035 HEPATITIS C SCREENING Completed 01/01/2023 HIB VACCINE Aged Out No longer eligi ble based on patient's age to complete this topic MENINGOCOCCAL (Group B) VACCINE SHARED DECISION-MAKING Aged Out No longer eligible based on patient's age to complete this topic MENINGOCOCCAL GROUPS A/C/Y/W VACCINE Aged Out No longer eligible based on patient's age to complete this topic PNEUMOCOCCAL VACCINE Aged Out No long er eligible based on patient's age to complete this topic Insurance * Guarantor: Mike Katz Account Type Relation to Patient Date of Phone Billing Address Personal/Family Self 1985 [address] [place] [address] [employer] [facility] Care Teams Safe And Vault Service Mechanic Relationship Specialty Start Date End Date Louise Jovel, FLIP-OTONIEL [address] [place] [id number] PCP - General Nurse Practitioner 03/09/17
== END 2024-11-28 10:04 | disposition home or self-care (01) ==
LOC: ANHSURGERY 10:07
PROVIDERS: Anesthesiology; PCP Registered Nurse; Visit Provider Surgery
DX: R94.31 Abnormal electrocardiogram [ECG] [EKG] (principal); I10 Essential (primary) hypertension; Z79.899 Other long term (current) drug therapy
CPT/HCPCS: 36415; 80048; 93005

== ENCOUNTER 2024-11-30 03:17 | Day surgery (SDC) | payer OTHER, SELFPAY ==
[2024-11-23 13:18] VITALS: BMI 36.5
--- NOTE | 2024-11-23 13:26 | PC.NURSE ---
[facility] has started construction of its new state of the art ER which will open Spring 2026. With this, we anticipate parking may be a challenge for some our surgical patients and families. Parking spaces are limited but are available for all Surgical, obstetrics, and ER patients sharing this lot. If you arrive and find you are having a hard time finding a parking space, please note that we understand the challenges, please drive around the hospital and park near Hospital Entrance 1. When you enter this entrance, you can ask a volunteer to direct or take you back to the surgical waiting area to check in. We appreciate everyone?s understanding of these expected challenges while we build for your future. Report to the Outpatient Waiting Room, entrance under the green pavilion located off [address], at time _1230_ on date _16-07-0901_. Planned Procedure Time: _230pm_.? Time changes happen often and if your time is changed the preop area will call you the afternoon before. - You and your visitor will be asked to self-screen and do not enter if you have any COVID symptoms. Please call surgeon if you need to reschedule. - A mask is optional within the hospital at this time. Patients may have clear liquids (water, carbonated beverages, clear teas, apple juice) until 3 hours prior to surgery with a maximum of 20 ounces. - No food from midnight until time of surgery and no smoking, or chewing tobacco (or any form of nicotine). No chewing gum, candy or mints. Take only the following medications with a SIP of water on the morning of surgery: ___None____ DO NOT STOP ANY OF YOUR OTHER PRESCRIPTION MEDICATIONS PRIOR TO SURGERY EXCEPT THE FOLLOWING Hold all vitamins and supplements for 3 days per anesthesiologist. Medications to discontinue per physician Date to take last qkri___[id number]____ Please no make-up, nail peruvian, hairspray, perfume, deodorant, or body powder the day of surgery.? No jewelry (including any body piercings) or valuables the day of surgery, leave them at home.? Please take a shower or bath the night before, or the morning of, surgery with an antibacterial soap.? Wear comfortable, loose fitting clothing.? - Jewelry must be removed prior to entering the operating room.? Rings and piercings that are not removed may be cut off. - The hospital will not accept responsibility for valuables.? - Please leave all valuables, including medications, at home the day of surgery. If you are going home after surgery, a licensed stock driver must drive you home.? - NO public transportation without another adult if you receive anesthesia. - We recommend that an adult stay with you for 24 hours following discharge. - We also recommend that you do not drive, make important decision, drink alcoholic beverages, or take any drugs that were not prescribed by your health care provider for at least 24 hours after your discharge time. Follow any additional instructions given to you from your surgeon. Telephone instructions given to __Marta__and asked if any additional questions and then verbalized understanding. Patient advised to call surgeon office or pre surgery nurse liaison [phone] if any additional questions.
[2024-11-30 12:30] VITALS: BP 133/81; PULSE 75; TEMP 36.1; O2SAT 99; BMI 36.0
--- NOTE | 2024-11-30 14:04 | WPDANESEPPF ---
Anes - Initial Pre Proc Eval Procedure: Operation Date: 11/30/24 14:30 Proposed Procedures p Excisional Biopsy Cyst / Mass Chest Wall - Tonie Rivera MD Date/Time: 11/30/24 14:04 Surgeon: Tonie Rivera MD Pre Op Diagnosis: Cystic Mass Chest Patient Data Age: 39 Gender: F Height: 1.73 m Weight: 107.4 kg Last Vital Signs Temp 36.1 C L 11/30/24 12:30 Pulse 75 11/30/24 12:30 BP 133/81 11/30/24 12:30 Pulse Ox 99 11/30/24 12:30 O2 Del Method Room Air 11/30/24 12:30 Allergies Allergy/AdvReac Type Severity Reaction Status Date / Time No Known Allergies Allergy Verified 11/30/24 13:20 Home Medications ?Medication ?Instructions ?Recorded ?Confirmed ?Type vitamins with calcium 1 tablet PO DAILY 03/24/23 11/23/24 History no.72-iron 27 mg-folic acid 1 mg tablet (WesTab Plus) chlorthalidone 25 mg tablet 25 mg PO HS 11/23/24 11/23/24 History loratadine 10 mg tablet (Claritin) 10 mg PO DAILY 11/23/24 11/23/24 History nifedipine 30 mg tablet,extended 30 mg PO HS 11/23/24 11/23/24 History release Patient hx anesthesia problems: none Family hx anesthesia problems: none Results Review: All pre-operative results and documents have been reviewed as part of the pre-operative evaluation. [facility] Past Medical History Medical History (Updated 11/30/24 @ 14:04 by Doyle Hubbard MD) Obesity Hypertension Surgical History Surgical History History of section Family History Family History Other Diabetes mellitus Hypertension Social History Social History Years smoked: 1 Smoking status: Current every day smoker Smoking end date: 11/23/14 Additional smoking assessment comments: Was just a some day smoker. Alcohol intake: current Substance use: never Living arrangements: with family Gender identity (if verbalized by the patient): Female Sexual Orientation (if Verbalized by the Patient): Straight or Heterosexual Spiritual care concerns: No Anes - Eval Final PreProcedure Day of Procedure 11/30/24 14:04 Patient weight: obese Heart: regular rate and rhythm Lungs: clear to auscultation Airway: Mallampati scale class II Neurological: alert and oriented Last oral intake: >/= 8 hours ASA classification: II Emergent: no Anesthetic plan: proceed Anesthesia type and monitoring: general GIVS and standard monitoring Results Review: All pre-operative results and documents have been reviewed as part of the pre-operative evaluation. Informed Consent: The patient's anesthetic plan and its attendant risks and benefits were discussed with the patient/family/POA. Questions were solicited and answers provided to the satisfaction of the patient/family/POA.
--- NOTE | 2024-11-30 14:12 | WPDHPUPDATE1 ---
History and Physical Update Update Date/Time: 11/30/24 14:12 History and Physical has been reviewed, including an updated exam of the patient. There are NO changes in the patient's condition. Risks, benefits, and alternatives have been discussed and questions answered. Patient agrees to proceed with procedure.
[2024-11-30 14:31] LABS: BEDSIDEPREGUCG Negative (Negative)
[2024-11-30] MEDS: ceFAZolin 2 GM in SODIUM CHLORIDE 0.9% IV 50 ML 100 ML IVPB (14:37)
--- NOTE | 2024-11-30 14:57 | S_PTH ---
PATIENT: Marta Porter LOC: [facility] U#:[id number] AGE/SX: 39/F ROOM: RE11/30/[address]: Tonie Rivera MD : 1985 BED: DIS: 11/30/2024 SPEC #: [id number] RECD: 12/01/24 07:55 STATUS: AGUSTIN REAamir #: [id number] BIBI: 11/30/24 14:[address]: Tonie Rivera DEPT: [facility] [place] Surgical RECD BY: Génesis Gross ENTERED: 12/01/24 07:56 SP TYPE: Surgical OTHR DR: Louise Jovel, FIRE HOSE CURER Tissues: A - Mass Procedures: Hematoxylin and Eosin Stain Gross and Microscopic Level 3
[2024-11-30] MEDS: BUPIVACAINE/EPINEPHRINE 0.5% 50 ML VIAL 30 ML INFILTRATE (15:03)
--- NOTE | 2024-11-30 15:10 | P.OP_ITS ---
Procedure Note - Detailed Date of Procedure 11/30/24 Pre-op Diagnosis Cystic Mass Chest Post-op Diagnosis Same Procedure Performed excisional biopsy chest wall cystic mass measuring 1.5 x 2.5 cm Surgeon Tonie Rivera MD Anesthesia MAC and Local Indications 39-year-old female presenting to the office with a cystic mass on her chest wall. She reports mass has been growing in size and occasionally drains. She does have some overlying skin changes consistent with previous infection. Findings Cystic mass mid chest wall, no evidence of active infection Description of Procedure the patient was taken the operating room and placed in the supine position. After adequate induction of MAC anesthesia, the patient was prepped and draped in the normal sterile fashion. A time-out was then done to verify the patient's identity, as well as the procedure being performed. I began by localizing the area in and around the cystic mass in the mid chest. I then used a 15 blade scalpel to make a incision in the dermis to encompass the entirety of the cyst. This did include the granulation tissue the overlying dermis as well as the punctate opening. This elliptical incision was carried down into the subcutane ous tissue. A cystic mass was noted at this point and completely excised with the overlying dermis. It will now be sent to pathology for further review. I then gained hemostasis with the Bovie cautery. The subcutaneous tissue was closed with 3-0 Vicryl suture. The skin was closed with 4-0 Monocryl subcuticular suture. Dermabond was placed on the wound. The patient tolerated the procedure well. She will be transferred to the recovery room in stable condition. Estimated Blood Loss 5 Pathology Yes Complications No immediate complications Condition Stable Disposition PACU [facility] Billing Surgery - Charge Forward: Surgery Billing
[2024-11-30 15:11] VITALS: BP 104/43; PULSE 106; RESP 14; O2SAT 98
[2024-11-30] MEDS: LACTATED RINGERS 1,000 ML 30 ML IV CONT (15:11)
[2024-11-30 15:40] VITALS: BP 133/75; PULSE 89
[2024-11-30 15:55] VITALS: BP 136/82; PULSE 70
== END 2024-11-30 16:02 | disposition home or self-care (01) ==
PROVIDERS: PCP Registered Nurse; Visit Provider Surgery
PROC: (CPT 11404; principal; 2024-11-30 14:30)
DX: L72.0 Epidermal cyst (principal); I10 Essential (primary) hypertension; F17.210 Nicotine dependence, cigarettes, uncomplicated; E66.9 Obesity, unspecified; Z68.36 Body mass index [BMI] 36.0-36.9, adult; Z79.899 Other long term (current) drug therapy; Z98.890 Other specified postprocedural states
CPT/HCPCS: 11404; 12032; 88304; J0690; J2003; J2250; J2704; J3010; J7120